=== PATIENT | female | born 1960 | race African-American/Black ===

== ENCOUNTER 2023-05-08 12:17 | Emergency (ER) | payer OTHER, SELFPAY ==
--- NOTE | 2023-05-08 12:31 | ED.GENADULT ---
HPI - General Adult General Chief complaint: Extremity Problem,Nontraumatic Stated complaint: Left Arm Pain Source: patient, RN notes reviewed and old records reviewed Mode of arrival: ambulatory Limitations: no limitations History of Present Illness HPI narrative: 62-year-old female presents to [facility] with complaints left elbow/arm redness, swelling, pain this started 2-3 days ago. Patient denies injury. MD complaint: Elbow pain Onset (ago): day(s) (2-3) Related Data Home Medications Medication Instructions Recorded Confirmed amlodipine 10 mg tablet mg 05/08/23 lisinopril 40 mg tablet mg 05/08/23 omeprazole 20 mg capsule,delayed mg 05/08/23 release simvastatin 20 mg tablet mg 05/08/23 tolterodine 2 mg tablet mg 05/08/23 Allergies Allergy/AdvReac Type Severity Reaction Status Date / Time No Known Allergies Allergy Verified 05/08/23 12:37 Review of Systems Constitutional: Constitutional: Reports no additional constitutional complaints, Denies body ache(s), Denies chills, Denies fatigue, Denies fever(s) and Denies headache(s) Eyes: Eyes: Reports no additional eye complaints and Denies blurry vision ENT: Reports system reviewed and no additional complaints, except as documented, Denies vertigo, Denies dizziness, Denies ear discharge, Denies otalgia, Denies facial pain, Denies headache(s), Denies nasal congestion, Denies nasal discharge, Denies sinus pain, Denies sinus pressure and Denies sore throat Cardiovascular: Cardiovascular: Reports no additional cardiovascular complaints, Denies chest pain, Denies chest pain at rest, Denies rapid heart rate and Denies dyspnea Respiratory: Respiratory: Reports no additional respiratory complaints, Denies chest congestion, Denies cough, Denies pain on inspiration, Denies pain with cough and Denies dyspnea Gastrointestinal: Gastrointestinal: Denies abdominal pain, Denies diarrhea, Denies nausea and Denies vomiting Musculoskeletal: Musculoskeletal: Reports arthralgias and Reports joint swelling Integumentary/Breasts: Skin/Breast: Denies rash Neurologic: Reports system reviewed and no additional complaints, except as documented, Denies vertigo, Denies dizziness and Denies headache(s) Endocrine: Endocrine: Denies fatigue PMFSH Comments At the time of my signature, I reviewed and agree with the nursing past medical, surgical, social, and family history. There is no relevant family history pertinent to the patient complaint. Exam Const: General: cooperative, healthy appearing, no acute distress and well nourished Nutritional Appearance: well nourished Orientation/consciousness: patient oriented x3 Limitations: no limitations HENMT: Head: normal to inspection and normocephalic Ears: external ears normal, TM's normal bilaterally, mastoids normal and Abnormal EAC present Face/Nose/Sinus: normal facial exam Face and sinus: normal facial exam Mouth: Yes Normal oral and palatal mucosa present, Yes oropharynx normal and Yes moist mucous membranes Throat: tonsils normal, uvula midline and no uvular edema Eyes: General: appearance normal, both eyes and all related structures Sclera: sclerae normal Pupils: Equal, round and reactive pupils present Resp: Effort & Inspection: normal respiratory effort, able to speak in complete sentences, no audible wheezes, no cough, no respiratory distress and no retractions Skin: General skin exam: normal color, no rashes or lesions noted and erythema Neuro: General: patient oriented x3 Cranial nerves: Yes Equal, round and reactive pupils present Extrem: Left upper extremity: normal capillary refill and elbow/forearm abnormal to inspection joint swelling and erythema, tenderness, swelling and warmth; no cyanosis Psych: Appearance: grossly normal Mental Status: mental status grossly normal Speech and movement: Normal speech and movement present Affect: normal affect Course Course Emergency Course: Patient is aware of diagnosi
[2023-05-08 12:34] VITALS: BP 132/79; PULSE 82; RESP 18; TEMP 36.2; O2SAT 100
== END 2023-05-08 12:50 | disposition home or self-care (01) ==
PROVIDERS: Emergency Provider Registered Nurse
DX: M70.22 Olecranon bursitis, left elbow (principal); E78.00 Pure hypercholesterolemia, unspecified; I10 Essential (primary) hypertension
CPT/HCPCS: 99213; G0463

== ENCOUNTER 2023-05-12 09:58 | Observation (INO) | payer OTHER, SELFPAY ==
--- NOTE | ~2023-05-12 | XR_ITS ---
EXAMINATION: XR elbow LT min 3V DATE: 05/12/2023 12:23 INDICATION: Left elbow pain and swelling. TECHNIQUE: 4 views of left elbow were obtained. COMPARISON: None. FINDINGS: Bone alignment is normal. No fracture. Joint spaces are normal there are enthesophytes at m edial and lateral humeral epicondyles. No elbow joint effusion. IMPRESSION: 1. No fracture. Reviewed, dictated and finalized at location A. UCT LISTER IMPRESSION: 1. No fracture.
--- NOTE | ~2023-05-12 | XR_ITS ---
EXAMINATION: XR chest 2V Exam Date/Time: 05/12/2023 14:40 ATHLETIC EQUIPMENT CUSTODIAN HISTORY: left elbow pain EXTREMITY REDNESS AND SWELLING Comparison: None. RESULT: Lines, tubes, and devices: None. Lungs and pleura: 2.1 cm left lower lobe nodule, lungs otherwise clear. Cardiomediastinal silhouette: Stable. Other: No acute osseous or upper abdominal finding. IMPRESSION: No acute cardiopulmonary process. 2.1 cm left lower lobe nodule, recommend comparison to outside stud ies if available. Otherwise, consider nonemergent but timely outpatient low-dose noncontrast CT of th e chest for further evaluation. Reviewed, dictated and finalized at location K. ETIC EQUIPMENT CUSTODIAN IMPRESSION: No acute cardiopulmonary process. 2.1 cm left lower lobe nodule, recommend comp arison to outside studies if available. Otherwise, consider nonemergent but nora terese outpatient low-dose noncontrast CT of the chest for further evaluation.
--- NOTE | ~2023-05-12 | MR_ITS ---
MRI of the elbow Clinical history muscle tear TECHNIQUE: Coronal proton-density and T1 fat-sat images, sagittal T2 fat-sat and proton-density image s, and axial T1-weighted and T2 fat-sat images were performed. Following intravenous administration o f 9 cc MultiHance gadolinium, T1-weighted fat-sat imaging was performed in the axial and sagittal caitie kaitlyn. FINDINGS: Ulnar collateral ligament grossly intact. Collateral ligament and the lateral ulnar collate ral ligament are grossly intact. Common flexor and common extensor tendon origins are unremarkable. Bone marrow signals are unremarkable. No articular abnormality of the elbow seen. No significant join t effusion. Biceps, brachialis, and triceps tendons are intact. Visualized muscle bellies are unremarkable. There is extensive subcutaneous soft tissue edema about the elbow, with a more focal irregular fluid colle ction overlying the olecranon, measuring approximately 2.3 x 2.5 x 0.8 cm. Probable small intramuscul ar lipoma in the medial aspect of the distal triceps muscle belly. There is a focal area of fat in th e brachialis muscle laterally, which corresponds with lesion seen on CT scan. IMPRESSION: Olecranon bursitis and additional nonspecific posterior subcutaneous soft tissue edema throughout the elbow. Findings most consistent with small intramuscular lipomas or other benign fatty lesions of the medial triceps and brachialis muscle laterally, which corresponds with CT findings. Reviewed, dictated and finalized at [facility]. GATION SYSTEM INSTALLER IMPRESSION: Olecranon bursitis and additional nonspecific posterior subcutaneous soft tissu e edema throughout the elbow. Findings most consistent with small intramuscular lipomas or other benign fatty lesions of the medial triceps and brachialis muscle laterally, which correspon ds with CT findings.
--- NOTE | ~2023-05-12 | CT_ITS ---
CT OF left elbow EXAMINATION: CT elbow LT wo con DATE: 05/12/2023 15:05 INDICATION: Nontraumatic elbow pain. TECHNIQUE: Computed tomography (CT) of the left elbow was performed without intravenous contrast. Aut omated exposure control and iterative reconstruction technique were employed. The dose-length product was 522.80 mGy-cm. COMPARISON: None FINDINGS: Limitations: None Bones: The included osseous structures are within normal limits. There are no erosive or destructive bony lesions. Soft Tissues:Posterior subcutaneous edema. 1.9 cm smoothly marginated fat density lesion in the media l aspect of the inferior triceps muscle. Heterogeneously dense 9 mm intramuscular lesion in the anter ior portion of the brachioradialis. Both lesions are noted approximately 7 cm proximal to the elbow j oint line over the distal upper arm. Fluid: No significant fluid within the joint capsule or surrounding bursal spaces. IMPRESSION: Normal osseous findings. Posterior subcutaneous swelling/contusion 9 mm intramuscular lesion in the anterior portion of the brachioradialis, may represent a small muscl e tear or other lesion. Medial triceps lipoma. Consider nonemergent MRI of the forearm without and with contrast for further evaluation of both lesi ons. Reviewed, dictated and finalized at location K. NOLOGIST IMPRESSION: Normal osseous findings. Posterior subcutaneous swelling/contusion 9 mm intramuscular lesion in the anterior portion of the brachioradialis, may r epresent a small muscle tear or other lesion. Medial triceps lipoma. Consider nonemergent MRI of the forearm without and with contrast for further e valuation of both lesions.
--- NOTE | 2023-05-12 10:04 | PC.NURSE ---
Pt states went to [facility] yesterday for same c/o waited 10 hours then left without being seen. Treated at on 05/08/23 for cellulitis of lower extremities started on antibiotic. States continuing to take medication. Seen by PMD this morning prior to to coming to ER. PMD states unable to do the testing pt request at office.
[2023-05-12 10:31] VITALS: BP 146/84; PULSE 81; RESP 20; TEMP 36.8; O2SAT 100
--- NOTE | 2023-05-12 12:06 | ED.GENADULT ---
HPI - General Adult General Chief complaint: Extremity Problem,Nontraumatic Stated complaint: leg swelling Time Seen by Provider: 05/12/23 13:56 History of Present Illness HPI narrative: Focused HPI: 1207 Elisa Allison is a 62 y/o female who has been dealing with intermittent swelling to both legs and left arm. She states it started 1 week ago. She went to an 4 days ago for her left arm/ elbow and she was told it was brusitis and started on an antibiotic. She went to her PCP today because she is having more swelling /redness to both legs and more pain swelling to left elbow - her PCP told her to come here to get checked out. Bilateral legs swollen/ red left elbow swollen/ red GENERAL: Well-appearing, well-nourished, and in no acute distress. HEAD: Normocephalic, atraumatic. CHEST: Clear to auscultation. ?No respiratory distress. HEART: Regular rate and rhythm.? NEURO: ?Alert and oriented x3. Patient screened in triage and initial orders placed.? ?Additional care and disposition to be based upon?diagnostic testing and treatment. Related Data Home Medications Medication Instructions Recorded Confirmed amlodipine 10 mg tablet 10 mg PO DAILY 05/08/23 05/12/23 lisinopril 40 mg tablet 40 mg PO DAILY 05/08/23 05/12/23 omeprazole 20 mg capsule,delayed 20 mg PO DAILY PRN heartburn 05/08/23 05/12/23 release simvastatin 20 mg tablet 20 mg PO DAILY 05/08/23 05/12/23 tolterodine 2 mg tablet 2 mg PO BID 05/08/23 05/12/23 Allergies Allergy/AdvReac Type Severity Reaction Status Date / Time No Known Allergies Allergy Verified 05/12/23 18:46 [facility] Past Medical History Medical History Bursitis of left elbow Cellulitis of left elbow Diverticulitis GERD (gastroesophageal reflux disease) Hyperlipidemia Hypertension Muscle tear Overactive bladder Surgical History Surgical History History of hysterectomy Family History Family History Mother Colon cancer Grandparent Breast cancer Social History Social History Smoking status: Former smoker Tobacco type: cigarettes Additional smoking assessment comments: Stop smoking years ago- unsure of exact year Alcohol intake: current Drinks per week: 1 Substance use: never Do You Feel Safe in your Home?: Yes Lack of Transportation: No Lack of Food: Never True Current Housing: I Have Housing Concerned About Future Housing: No Difficulty Paying Gas/Electric Bills: No Difficulty Paying for Meds: No Currently Unemployed: No Education: Don't Know Difficulty w/ Childcare or Family Care: No Spiritual care concerns: No Course Vital Signs Vital signs: Vital Signs Temperature 36.8 C 05/12/23 10:31 Pulse Rate 81 05/12/23 10:31 Respiratory Rate 20 05/12/23 10:31 Blood Pressure 146/84 H 05/12/23 10:31 Pulse Oximetry 100 05/12/23 10:31 Oxygen Delivery Room Air 05/12/23 10:31 Temperature 36.3 C L 05/15/23 14:00 Pulse Rate 78 05/15/23 14:00 Respiratory Rate 18 05/15/23 14:00 Blood Pressure 99/51 L 05/15/23 14:00 Pulse Oximetry 99 05/15/23 14:00 Oxygen Delivery Room Air 05/14/23 08:00 Medical Decision Making Vital Signs Vital Signs: Vital Signs Temperature 36.8 C 05/12/23 10:31 Pulse Rate 81 05/12/23 10:31 Respiratory Rate 20 05/12/23 10:31 Blood Pressure 146/84 H 05/12/23 10:31 Pulse Oximetry 100 05/12/23 10:31 Oxygen Delivery Room Air 05/12/23 10:31 Temperature 36.3 C L 05/15/23 14:00 Pulse Rate 78 05/15/23 14:00 Respiratory Rate 18 05/15/23 14:00 Blood Pressure 99/51 L 05/15/23 14:00 Pulse Oximetry 99 05/15/23 14:00 Oxygen Delivery Room Air 05/14/23 08:00 Lab Data 05/15/23 07:44 05/15/23 07:44 Labs:
[2023-05-12 13:18] LABS: Basophils Percent Auto 0.1 % (0.2-1.2); Eosinophils Absolute Auto 0.3 K/mm3 (0-0.3); Eosinophils Percent Auto 4.1 % (0-4.4); Hematocrit 43.6 % (37.0-47.0); Hemoglobin 13.3 g/dL (12.0-15.0); Immature Granulocyte Absolute 0.01 K/mm3 (0.00-0.031); Immature Granulocyte Percent A 0.1 % (0-0.5); Lymphocytes Absolute Auto 2.12 K/mm3 (0.9-3.2); Lymphocytes Percent Auto 31.2 % (18.3-44.2); Mean Corpuscular HGB Conc 30.5 g/dl (32-36); Mean Corpuscular Hemoglobin 26.5 pg (26-34); Mean Corpuscular Volume 86.9 fl (80-100); Mean Platelet Volume 10.3 fl (7.4-10.4); Monocytes Absolute Auto 0.3 K/mm3 (0.1-0.6); Monocytes Percent Auto 4.3 % (2.6-8.5); Neutrophils Absolute Auto 4.1 K/mm3 (1.3-6.7); Neutrophils Percent Auto 60.2 % (45.5-73.1); Platelet Count Result 264 k/mm3 (150-375); Red Blood Count 5.02 M/mm3 (4.2-5.4); Red Cell Distribution Width 15.2 % (11.5-14.5); White Blood Count 6.8 K/mm3 (4.5-10.0)
[2023-05-12 13:28] LABS: Anisocytosis 1+ (NORMAL); Platelet Estimate Adequate (Adequate); Schistocytes None Seen (NORMAL)
[2023-05-12 13:30] LABS: Lactic Acid Reflex 1.1 mmol/L (0.7-2.0)
[2023-05-12 13:46] LABS: NT Pro B Type Natriuretic Pept 118 pg/mL (19.9-100)
[2023-05-12 13:48] VITALS: BP 139/82; PULSE 86; RESP 18; O2SAT 100
[2023-05-12 13:50] LABS: Alanine Aminotransferase 49 U/L (6-35); Alkaline Phosphatase 87 U/L (38-126); Anion Gap 7 mmol/L (8-16); Aspartate Amino Transferase 54 U/L (14-36); Bilirubin,Total 0.4 mg/dL (0.2-1.3); Blood Urea Nitrogen 10 mg/dL (7-17); CRP 4.5 mg/dL (<1.0); Carbon Dioxide 27 mmol/L (22-30); Chloride 106 mmol/L (98-107); Estimated CRCL calculation 76 ml/min; Estimated Glomerular Filt Rate > 60; Glucose 83 mg/dL (65-110); Potassium 3.6 mmol/L (3.4-5.0); Sodium 140 mmol/L (137-145)
--- NOTE | 2023-05-12 13:57 | ED.EXTPRO ---
HPI - Extremity Problem General Chief complaint: Extremity Problem,Nontraumatic Stated complaint: leg swelling Time Seen by Provider: 05/12/23 13:56 Source: patient Mode of arrival: ambulatory Limitations: no limitations History of Present Illness HPI Narrative: 62 years old female came drove herself to the emergency room complaining of pain at the left elbow, and swelling at that area it started 1 week ago. Patient went to urgent care few days later and started on Keflex 500 q.8 hours and ibuprofen 1 day prior to that patient developed diffuse redness and itching of the lower extremity bilaterally. Patient denies history of allergy, fever, chills, nausea, vomiting or having similar symptom in the past. Patient went to [facility] Emergency Room and waited for long hours, then went to home, today was seen by her family physician who works at [facility] and was told to go to the ED right away. Patient decided contact [facility] instead of [facility] ED. patient denies any recent trauma, chest pain, shortness of breath, back pain. Related Data Home Medications Medication Instructions Recorded Confirmed amlodipine 10 mg tablet mg 05/08/23 lisinopril 40 mg tablet mg 05/08/23 omeprazole 20 mg capsule,delayed mg 05/08/23 release simvastatin 20 mg tablet mg 05/08/23 tolterodine 2 mg tablet mg 05/08/23 Allergies Allergy/AdvReac Type Severity Reaction Status Date / Time No Known Allergies Allergy Verified 05/12/23 10:00 Review of Systems Review of Systems: All systems reviewed & are unremarkable except as noted in HPI and below PMFSH Past Medical History Medical History Hypertension Surgical History Surgical History History of hysterectomy Social History Social History Smoking status: Former smoker Tobacco type: cigarettes Additional smoking assessment comments: Stop smoking years ago- unsure of exact year Alcohol intake: never Substance use: never Exam Narrative: General appearance: Well-developed, well-nourished Skin: Symmetrical diffuse erythema, warmth of the lower extremity bilaterally immediately distal to the groins bilaterally, circumferential Head: Normocephalic, nontraumatic Eyes: Clear conjunctiva ENT: Oropharynx normal, ears normal, nose normal Neck: Supple, nontender Chest and respiratory: Airway patent, no respiratory distress, no accessory muscle use Heart: Regular rate/rhythm Abdomen: Soft, nontender, no organomegaly, quiet bowel sounds Vascular: Normal peripheral pulses, normal capillary refill. Musculoskeletal: left elbow showed slight diffuse tenderness, warmth, no localized swelling slightly erythematous Neurologic: Alert and oriented ?3, [employer] is normal as tested, no gross motor deficit Course Consultations Consultation #1: krupa Admit to hospitalist Date: 05/12/23 Time: 16:18 Vital Signs Vital signs: Vital Signs Temperature 36.8 C 05/12/23 10:31 Pulse Rate 81 05/12/23 10:31 Respiratory Rate 20 05/12/23 10:31 Blood Pressure 146/84 H 05/12/23 10:31 Pulse Oximetry 100 05/12/23 10:31 Oxygen Delivery Room Air 05/12/23 10:31 Temperature 36.8 C 05/12/23 10:31 Pulse Rate 79 05/12/23 15:26 Respiratory Rate 15 05/12/23 15:26 Blood Pressure 135/77 05/12/23 15:26 Pulse Oximetry 100 05/12/23 15:26 Oxygen Delivery Room Air 05/12/23 10:31 MDM - Extremity (Nontraumatic) MDM Narrative Medical decision making narrative: patient pres
[2023-05-12 15:09] LABS: Prothrombin Time 13.7 Seconds (11.1-14.7)
[2023-05-12 15:10] LABS: Partial Thromboplastin Time 30.1 SECONDS (22.3-36.8)
[2023-05-12 15:15] LABS: Erythrocyte Sedimentation Rate 13 mm/hr (0-20)
[2023-05-12 15:26] VITALS: BP 135/77; PULSE 79; RESP 15; O2SAT 100
--- NOTE | 2023-05-12 15:35 | PM.IMHP ---
H&P: HPI History of Present Illness Date/Time: 05/12/23 15:35 Chief Complaint: Left elbow redness and edema, BLE redness and edema Narrative: 62 year old AA female is seen today at bedside for admission after presenting to ER with concerns of left elbow and BLE erythema and edema. She is admitted for cellulitis of left elbow. She state that about 1 week ago she noticed her elbow was swollen and red. She stated that after she noticed her elbow she began to feel warmth and swelling in her legs. She expressed that pain in left elbow is intermittent and describes it as stabbing. She denies any pain to BLE. She stated both area are always hot. She stated she attempted to visit [facility], however, due to prolonged wait time she left, and tried to see her PCP who told her she must go to ER. She chose to visit this hospital. She presents with a warm, 2+ nonpitting edema to left elbow, noted is a small potential puncture site wound, without drainage. Her BLE have warmth and 1+ edema in the thigh area, pedal pulses are palpable at 2+. In ER evaluation and Image studies, X-ray of left elbow show no fracture, CT of left elbow revealed posterior subcutaneous swelling/contusion, 9mm intramuscular lesion in the anterior portion of the brachioradialis, that may represnt a small muscle tear or other lesion, medial triceps lipoma. Orthopedics was consulted in ER and we appreciate recommendations for care. MRI ordered will be scheduled for tomorrow. Laboratory values show normal WBC and slightly elevated CRP at 4.5. Chest X-ray shows no acute cardiopulmonary process, 2.1cm LLL nodule of which it is recommend timely outpatient follow up. Patient will receive IV Vancomycin and PO Prednisone 60mg Daily. She was made aware of admission and agreeable to care. All questions were answered to patient satisfaction. Review of Systems Review of Systems: All systems reviewed & are unremarkable except as noted in HPI and below PMFSH Past Medical History Medical History Bursitis of left elbow Cellulitis of left elbow Diverticulitis GERD (gastroesophageal reflux disease) Hyperlipidemia Hypertension Muscle tear Overactive bladder Surgical History Surgical History History of hysterectomy Social History Social History Smoking status: Former smoker Tobacco type: cigarettes Additional smoking assessment comments: Stop smoking years ago- unsure of exact year Alcohol intake: never Substance use: never Meds Home Medications and Allergies Home Medications Medication Instructions Recorded Confirmed Type amlodipine 10 mg tablet mg 05/08/23 History cephalexin 500 mg capsule 500 mg PO Q8H 10 days #30 caps 05/08/23 Rx fluconazole 100 mg tablet 100 mg PO Q72H #2 tabs 05/08/23 Rx (Diflucan) ibuprofen 600 mg tablet 600 mg PO Q6H PRN pain 5 days #20 05/08/23 Rx tabs lisinopril 40 mg tablet mg 05/08/23 History omeprazole 20 mg capsule,delayed mg 05/08/23 History release simvastatin 20 mg tablet mg 05/08/23 History tolterodine 2 mg tablet mg 05/08/23 History Allergies Allergy/AdvReac Type Severity Reaction Status Date / Time No Known Allergies Allergy Verified 05/12/23 10:00 Vital Signs Vital Signs - 24 hr 05/12/23 10:31 05/12/23 13:48 05/12/23 15:26 Temperature 98.3 F Pulse Rate 81 86 79 Respiratory Rate 20 18 15 Blood Pressure 146/84 H 139/82 135/77 Pulse Oximetry 100 100 100 Oxygen Delivery Room Air Exam Narrative: General:?Well-developed, Well-nourished, Alert and oriented, no acute distress noted. HEENT:?Normocephalic, PERRL, EOMI, MMM Neck:??Supple, non-tender Respiratory:?Lungs are clear to auscultation bilaterally, non-labored respirations Cardiovascular:??Regular rate and rhythm with S1-S2. Gastrointestinal:??Abdomen is soft, non-distended, non
[2023-05-12 15:48] VITALS: PULSE 80; RESP 18; O2SAT 100
[2023-05-12] MEDS: VANCOMYCIN 1,250 MG/NS 250 ML 1,250 MG/250 ML BAG 166.67 MG IVPB (16:19)
[2023-05-12] MEDS: predniSONE 20 MG TABLET 60 MG PO (16:21)
[2023-05-12 17:55] VITALS: BMI 31.4
[2023-05-12] MEDS: traMADol HCL (*CRX) 50 MG TABLET PO (18:27)
--- NOTE | 2023-05-12 18:38 | ADMGEN ---
This patient, Elisa Allison, was admitted to [facility] Surg Room 323-01. Patient/family oriented to hospital policies and general routines including ID bracelet, bed and alarms, visiting hours, pain management, procedures, bathroom and other care routines, personal items, smoking policy, room service/diet, and visiting hours. Information on how to activate the Rapid Response Team has been discussed. Patient/Family are encouraged to report perceived risks to care and to ask questions if they do not understand what they are told or what they should do. Report from Dayna in ER.
[2023-05-12 20:12] VITALS: BP 137/75; PULSE 84; RESP 18; TEMP 36.4; O2SAT 98
[2023-05-12] MEDS: MORPHINE SULFATE (*CRX) 4 MG/ML INJ IV PUSH (20:39)
[2023-05-12] MEDS: HYDROcodone/acetaminophen (*CRX) 5-325 MG TABLET 1 TAB PO (20:40)
[2023-05-12] MEDS: TOLTERODINE TARTRATE 2 MG TABLET PO (22:54)
[2023-05-13] MEDS: HYDROcodone/acetaminophen (*CRX) 5-325 MG TABLET 1 TAB PO ×3 (02:20→19:53)
[2023-05-13 05:15] VITALS: BP 121/74; PULSE 77; RESP 16; TEMP 36.3; O2SAT 100
[2023-05-13 06:44] LABS: Hematocrit 38.7 % (37.0-47.0); Hemoglobin 12.3 g/dL (12.0-15.0); Mean Corpuscular HGB Conc 31.8 g/dl (32-36); Mean Corpuscular Hemoglobin 27.1 pg (26-34); Mean Corpuscular Volume 85.2 fl (80-100); Mean Platelet Volume 10.5 fl (7.4-10.4); Platelet Count Result 258 k/mm3 (150-375); Red Blood Count 4.54 M/mm3 (4.2-5.4); Red Cell Distribution Width 14.8 % (11.5-14.5); White Blood Count 8.5 K/mm3 (4.5-10.0)
[2023-05-13 06:57] LABS: Alanine Aminotransferase 78 U/L (6-35); Albumin Level 3.6 g/dL (3.5-5.1); Alkaline Phosphatase 72 U/L (38-126); Anion Gap 7 mmol/L (8-16); Aspartate Amino Transferase 72 U/L (14-36); Bilirubin,Total 0.3 mg/dL (0.2-1.3); Blood Urea Nitrogen 12 mg/dL (7-17); Calcium 8.6 mg/dL (8.4-10.2); Carbon Dioxide 26 mmol/L (22-30); Chloride 107 mmol/L (98-107); Estimated CRCL calculation 88 ml/min; Estimated Glomerular Filt Rate > 60; Glucose 111 mg/dL (65-110); Potassium 3.8 mmol/L (3.4-5.0); Sodium 140 mmol/L (137-145)
[2023-05-13] MEDS: lisinopriL 20 MG TABLET 40 MG PO (09:23)
[2023-05-13] MEDS: predniSONE 20 MG TABLET 60 MG PO (09:23)
[2023-05-13] MEDS: PANTOPRAZOLE SOD SESQUIHYDRATE 20 MG TAB PO (09:24)
[2023-05-13] MEDS: amLODIPine BESYLATE 5 MG TABLET 10 MG PO (09:24)
[2023-05-13] MEDS: SIMVASTATIN 20 MG TABLET PO (09:24)
--- NOTE | 2023-05-13 09:24 | PM.CNOR ---
Assessment and Plan Assessment and plan (1) Rash, skin: Code(s): R21 - Rash and other nonspecific skin eruption Status: Acute Assessment and Plan: Patient with significant erythema b/l LE from proximal thigh to ankle. Minimal swelling. No weeping. No open wounds. Erythema present prior to initiation of antibiotic by urgent care last week. No known causes. Patient is on steroids and antibiotics for vasculitis vs. cellulitis as ordered by medicine team. Increased AST/ALT, CRP. Will check PHIL and Anti-dsDNA as well. (2) Cellulitis of left elbow: Code(s): L03.114 - Cellulitis of left upper limb Status: Acute Assessment and Plan: History, exam, CT and radiographs reviewed with the patient. Erythema/swelling of the left elbow. Biceps tendon intact. No obvious ligament laxity. No pain with AROM/PROM. Significant pain over the lateral epicondyle with palpation. No olecranon bursitis noted. MRI with contrast pending. Will continue to follow. Agree with antibiotics in the interim. Plan pending further imaging. History of Present Illness HPI Consult date: 05/13/23 Chief complaint: L Pulmonary Nodule/L Elbow Nontraumatic Pain/Skin Narrative: 62 year old female admitted with new onset left elbow pain, inflammation and erythema as well as bilateral lower extremity erythema from thigh to ankle. She was seen in an urgent care last week and started on cephalexin for her elbow pain/inflammation. Her b/l leg erythema was present prior to initiation of the antibiotic. She went to see her PCP for follow up after no improvement and failure to be seen in the ED at [facility]. She was directed by her PCP for reevaluation in the ED which prompted her visit here to [facility] as she lives in the area. She works for [employer]. Radiographs of the elbow in the ED reveal enthesophytes at medial and lateral humeral epicondyles but no evidence of fracture, dislocation or acute abnormalities. CT of the elbow reveals posterior subcutaneous swelling/contusion, a 9 mm intramuscular lesion in the anterior portion of the brachioradialis, and a medial triceps lipoma. She was admitted for further evaluation and work up. Review of Systems Constitutional: Constitutional: Reports no additional constitutional complaints, Denies chills, Denies fatigue, Denies fever(s), Denies headache(s) and Denies weakness Eyes: Eyes: Denies change in vision ENT: Reports Normal hearing present and Denies headache(s) Cardiovascular: Cardiovascular: Denies chest pain and Denies dyspnea Respiratory: Respiratory: Denies cough, Denies dyspnea and Denies wheezing Gastrointestinal: Gastrointestinal: Denies constipation, Denies diarrhea, Denies nausea and Denies vomiting Genitourinary: Genitourinary: Denies hematuria, Denies dysuria and Denies urinary urgency Musculoskeletal: Musculoskeletal: Reports as per HPI, Denies numbness and Denies tingling Integumentary/Breasts: Skin/Breast: Reports as per HPI Neurologic: Reports as per HPI, Reports Normal hearing present, Denies headache(s), Denies numbness, Denies tingling and Denies weakness Psychiatric: Psychiatric: Reports no additional psychiatric complaints Endocrine: Endocrine: Reports no additional endocrine complaints and Denies fatigue Hematologic/Lymphatic: Hematologic/Lymphatic: Reports no additional hematologic/lymphatic complaints Allergic/Immunologic: Allergic/Immunologic: Reports no additional allergic/immunologic complaints and Denies wheezing PMFSH Past Medical History Medical History Bursitis of left elbow Cellulitis of left elbow Diverticulitis GERD (gastroesophageal reflux disease) Hyperlipidemia Hypertension Muscle tear Overactive bladder Surgical History Surgical History History of hysterectomy Family History Family History Mother Colon cancer
[2023-05-13] MEDS: FLUCONAZOLE 100 MG TABLET PO (09:26)
[2023-05-13] MEDS: VANCOMYCIN 1,250 MG/NS 250 ML 1,250 MG/250 ML BAG 166.67 MG IVPB (09:27)
[2023-05-13] MEDS: TOLTERODINE TARTRATE 2 MG TABLET PO ×2 (09:52→19:53)
[2023-05-13 11:04] VITALS: O2SAT 97
[2023-05-13 13:35] VITALS: BP 140/72; PULSE 86; RESP 16; TEMP 36.2; O2SAT 100
--- NOTE | 2023-05-13 14:26 | P.PNIM_ITS ---
Progress Note: A&P Assessment and Plan (1) Rash, skin: Code(s): R21 - Rash and other nonspecific skin eruption Status: Acute Assessment and Plan: * Bilateral erythema and 2+ edema, with warmth. Patient denies pain to area, however admits to intermittent itch * Continue Prednisone 60 mg PO daily for possible vasculitis. * Continue Vancomycin IV for possible cellulitis * Continue to monitor * 05/13/23: Bilateral LE erythema continues. Patient denies pain, admits to itch at times. Stated edema is less today but notes that it returns if her legs are dependent. * Due to increased AST/ALT, CRP also suggest PHIL and Anti-dsDNA labs * R/O vasculitis vs cellulitis vs auto-immune. (2) Cellulitis of left elbow: Code(s): L03.114 - Cellulitis of left upper limb Status: Acute Assessment and Plan: * Presents with erythema, edema and warms to LUE * Small puncture like wound * CT of left elbow revealed posterior subcutaneous swelling/contusion, 9mm intramuscular lesion in the anterior portion of the brachioradialis, that may represnt a small muscle tear or other lesion, medial triceps lipoma. * Orthopedics consulted in ER and we appreciate recommendations for care * IV abx- Vancomycin and PO prednisone 60mg daily * 05/13/23: Erythema decreased today. no pain with ROM. * Ortho consulted- assessed patient agreeable to MRI with contrast to r/o bursitis vs abscess * MRI result: olecranon bursitis and additional nonspecific posterior subcutaneous soft tissue edema throughout elbow.Finds are most consistent with small intramuscular lipomas or other benign fatty lesions on the medial triceps and brachialis muscle laterally * Continue IV abx, appreciated Ortho recommendation for further care. (3) Muscle tear: Code(s): T14.8XXA - Other injury of unspecified body region, initial encounter Status: Acute Assessment and Plan: * See #2 (4) Bursitis of left elbow: Code(s): M70.32 - Other bursitis of elbow, left elbow Status: Acute Assessment and Plan: * See #2 * Ortho consulted- assessed patient agreeable to MRI with contrast to r/o bursitis vs abscess * MRI result: olecranon bursitis and additional nonspecific posterior subcutaneous soft tissue edema throughout elbow.Finds are most consistent with small intramuscular lipomas or other benign fatty lesions on the medial triceps and brachialis muscle laterally * Continue IV abx, appreciated Ortho recommendation for further care. (5) Hyperlipidemia: Code(s): E78.5 - Hyperlipidemia, unspecified Status: Acute Assessment and Plan: * Patient admits to hx of elevated cholesterol levels * Continue home simvastatin (6) GERD (gastroesophageal reflux disease): Code(s): K21.9 - Gastro-esophageal reflux disease without esophagitis Status: Acute Assessment and Plan: * Patient admits to hx of GERD and diverticulitis. Stated depending on food consumed she experiences symptoms * Continue home omeprazole * 05/13/23: Patient denies symptoms at this time. Continue current management (7) Hypertension: Code(s): I10 - Essential (primary) hypertension Status: Acute Assessment and Plan: * BPs WNL- 135/77 at this time * Potentially elevated due to pain episodes. * Continue patients home amlodipine and lisinopril * Continue to monitor * 05/13/23: BP this am 121/74. Continue current management (8) Elbow pain, left: Code(s): M25.522 - Pain in left elbow Status: Acute Assessment and Plan: * Patient admits to intermittent pain to left
--- NOTE | 2023-05-13 14:26 | PM.IMPN ---
Progress Note: A&P Assessment and Plan (1) Rash, skin: Code(s): R21 - Rash and other nonspecific skin eruption Status: Acute Assessment and Plan: Bilateral erythema and 2+ edema, with warmth. Patient denies pain to area, however admits to intermittent itch Continue Prednisone 60 mg PO daily for possible vasculitis. Continue Vancomycin IV for possible cellulitis Continue to monitor 05/13/23: Bilateral LE erythema continues. Patient denies pain, admits to itch at times. Stated edema is less today but notes that it returns if her legs are dependent. Due to increased AST/ALT, CRP also suggest PHIL and Anti-dsDNA labs R/O vasculitis vs cellulitis vs auto-immune. (2) Cellulitis of left elbow: Code(s): L03.114 - Cellulitis of left upper limb Status: Acute Assessment and Plan: Presents with erythema, edema and warms to LUE Small puncture like wound CT of left elbow revealed posterior subcutaneous swelling/contusion, 9mm intramuscular lesion in the anterior portion of the brachioradialis, that may represnt a small muscle tear or other lesion, medial triceps lipoma. Orthopedics consulted in ER and we appreciate recommendations for care IV abx- Vancomycin and PO prednisone 60mg daily 05/13/23: Erythema decreased today. no pain with ROM. Ortho consulted- assessed patient agreeable to MRI with contrast to r/o bursitis vs abscess MRI result: olecranon bursitis and additional nonspecific posterior subcutaneous soft tissue edema throughout elbow.Finds are most consistent with small intramuscular lipomas or other benign fatty lesions on the medial triceps and brachialis muscle laterally Continue IV abx, appreciated Ortho recommendation for further care. (3) Muscle tear: Code(s): T14.8XXA - Other injury of unspecified body region, initial encounter Status: Acute Assessment and Plan: See #2 (4) Bursitis of left elbow: Code(s): M70.32 - Other bursitis of elbow, left elbow Status: Acute Assessment and Plan: See #2 Ortho consulted- assessed patient agreeable to MRI with contrast to r/o bursitis vs abscess MRI result: olecranon bursitis and additional nonspecific posterior subcutaneous soft tissue edema throughout elbow.Finds are most consistent with small intramuscular lipomas or other benign fatty lesions on the medial triceps and brachialis muscle laterally Continue IV abx, appreciated Ortho recommendation for further care. (5) Hyperlipidemia: Code(s): E78.5 - Hyperlipidemia, unspecified Status: Acute Assessment and Plan: Patient admits to hx of elevated cholesterol levels Continue home simvastatin (6) GERD (gastroesophageal reflux disease): Code(s): K21.9 - Gastro-esophageal reflux disease without esophagitis Status: Acute Assessment and Plan: Patient admits to hx of GERD and diverticulitis. Stated depending on food consumed she experiences symptoms Continue home omeprazole 05/13/23: Patient denies symptoms at this time. Continue current management (7) Hypertension: Code(s): I10 - Essential (primary) hypertension Status: Acute Assessment and Plan: BPs WNL- 135/77 at this time Potentially elevated due to pain episodes. Continue patients home amlodipine and lisinopril Continue to monitor 05/13/23: BP this am 121/74. Continue current management (8) Elbow pain, left: Code(s): M25.522 - Pain in left elbow Status: Acute Assessment and Plan: Patient admits to intermittent pain to left elbow Order Tylenol 650mg q6hr PRN pain Order Tramadol 50 q6hrn PRN severe pain 05/13/23: Patient required once time dose of IV pain medication over night, stated pain is controled at this time Continue current options. Plan Inform patient to F/U Chest X-Ray results: 2.1 cm left lower lobe nodule, recommend comparison to outside studies if available. Otherwise, consider nonemergent bu
[2023-05-13 20:00] VITALS: PULSE 86; RESP 16; O2SAT 100
[2023-05-13] MEDS: VANCOMYCIN 1,250 MG/NS 250 ML 1,250 MG/250 ML BAG 166 MG IVPB (20:55)
[2023-05-13 22:00] VITALS: BP 124/69; PULSE 68; RESP 20; TEMP 36; O2SAT 98
[2023-05-14 06:00] VITALS: BP 134/74; PULSE 79; RESP 20; TEMP 36.6; O2SAT 100
[2023-05-14 08:01] LABS: Hematocrit 38.7 % (37.0-47.0); Mean Corpuscular Hemoglobin 26.8 pg (26-34); Mean Corpuscular Volume 86.4 fl (80-100); Mean Platelet Volume 10.1 fl (7.4-10.4); Platelet Count Result 279 k/mm3 (150-375); Red Blood Count 4.48 M/mm3 (4.2-5.4); White Blood Count 14.3 K/mm3 (4.5-10.0)
[2023-05-14] MEDS: amLODIPine BESYLATE 5 MG TABLET 10 MG PO (08:08)
[2023-05-14] MEDS: TOLTERODINE TARTRATE 2 MG TABLET PO ×2 (08:08→20:09)
[2023-05-14] MEDS: predniSONE 20 MG TABLET 60 MG PO (08:08)
[2023-05-14] MEDS: lisinopriL 20 MG TABLET 40 MG PO (08:08)
[2023-05-14] MEDS: PANTOPRAZOLE SOD SESQUIHYDRATE 20 MG TAB PO (08:08)
[2023-05-14] MEDS: SIMVASTATIN 20 MG TABLET PO (08:08)
[2023-05-14 08:16] LABS: Alanine Aminotransferase 125 U/L (6-35); Albumin Level 3.9 g/dL (3.5-5.1); Alkaline Phosphatase 72 U/L (38-126); Anion Gap 8 mmol/L (8-16); Aspartate Amino Transferase 101 U/L (14-36); Bilirubin,Total 0.3 mg/dL (0.2-1.3); Blood Urea Nitrogen 15 mg/dL (7-17); Carbon Dioxide 27 mmol/L (22-30); Chloride 106 mmol/L (98-107); Estimated CRCL calculation 77 ml/min; Estimated Glomerular Filt Rate > 60; Glucose 101 mg/dL (65-110); Potassium 3.6 mmol/L (3.4-5.0); Sodium 141 mmol/L (137-145)
[2023-05-14] MEDS: VANCOMYCIN 1,250 MG/NS 250 ML 1,250 MG/250 ML BAG 166 MG IVPB ×2 (09:26→20:12)
--- NOTE | 2023-05-14 11:50 | P.PNIM_ITS ---
Progress Note: A&P Assessment and Plan (1) Rash, skin: Code(s): R21 - Rash and other nonspecific skin eruption Status: Acute Assessment and Plan: * Bilateral erythema and 2+ edema, with warmth. Patient denies pain to area, however admits to intermittent itch * Continue Prednisone 60 mg PO daily for possible vasculitis. * Continue Vancomycin IV for possible cellulitis * Continue to monitor * PHIL and Anti-dsDNA labs pending * R/O vasculitis vs cellulitis vs auto-immune. (2) Cellulitis of left elbow: Code(s): L03.114 - Cellulitis of left upper limb Status: Acute Assessment and Plan: * Presents with erythema, edema and warms to LUE * Small puncture like wound * CT of left elbow revealed posterior subcutaneous swelling/contusion, 9mm intramuscular lesion in the anterior portion of the brachioradialis, that may represent a small muscle tear or other lesion, medial triceps lipoma. * Orthopedics consulted appreciate plan recommendation * -continue iV abx- Vancomycin and PO prednisone 60mg daily * MRI result: olecranon bursitis and additional nonspecific posterior subcutaneous soft tissue edema throughout elbow.Finds are most consistent with small intramuscular lipomas or other benign fatty lesions on the medial triceps and brachialis muscle laterally * Continue IV abx, appreciated Ortho recommendation for further care. (3) Muscle tear: Code(s): T14.8XXA - Other injury of unspecified body region, initial encounter Status: Acute Assessment and Plan: * See #2 (4) Bursitis of left elbow: Code(s): M70.32 - Other bursitis of elbow, left elbow Status: Acute Assessment and Plan: * See #2 (5) Hyperlipidemia: Code(s): E78.5 - Hyperlipidemia, unspecified Status: Acute Assessment and Plan: * Patient admits to hx of elevated cholesterol levels * Continue home simvastatin (6) GERD (gastroesophageal reflux disease): Code(s): K21.9 - Gastro-esophageal reflux disease without esophagitis Status: Acute Assessment and Plan: * Patient hx of GERD and diverticulitis. Stated depending on food consumed she experiences symptoms * Continue home omeprazole * 05/14/23: Continue current management (7) Hypertension: Code(s): I10 - Essential (primary) hypertension Status: Acute Assessment and Plan: BPs WNL-BP this a.m. 140/62 * Continue patients home amlodipine and lisinopril * Continue to monitor (8) Elbow pain, left: Code(s): M25.522 - Pain in left elbow Status: Acute Assessment and Plan: * Order Tylenol 650mg q6hr PRN pain * Order Tramadol 50 q6hrn PRN severe pain * Continue current options. Plan Inform patient to F/U Chest X-Ray results: 2.1 cm left lower lobe nodule, recommend comparison to outside studies if available. Otherwise, consider nonemergent but timely outpatient low-dose noncontrast CT of the chest for further evaluation. Subjective Date/time seen: 05/14/23 11:50 Interval history: 62 year old AA female presented to the ER with Left elbow pain and swelling as well as BLE redness, edema and warmth. She denied any known trauma to these area , reports being seen at urgent care and given abx, however, both areas were with symptoms before taking any abx. Image studies in ER, X-ray of left elbow show no fracture, CT of left elbow revealed posterior subcutaneous swelling/contusion, 9mm intramuscular lesion in the anterior portion of the brachioradialis, that may represent a small muscle tear or other lesion,
--- NOTE | 2023-05-14 11:50 | PM.IMPN ---
Progress Note: A&P Assessment and Plan (1) Rash, skin: Code(s): R21 - Rash and other nonspecific skin eruption Status: Acute Assessment and Plan: Bilateral erythema and 2+ edema, with warmth. Patient denies pain to area, however admits to intermittent itch Continue Prednisone 60 mg PO daily for possible vasculitis. Continue Vancomycin IV for possible cellulitis Continue to monitor PHIL and Anti-dsDNA labs pending R/O vasculitis vs cellulitis vs auto-immune. (2) Cellulitis of left elbow: Code(s): L03.114 - Cellulitis of left upper limb Status: Acute Assessment and Plan: Presents with erythema, edema and warms to LUE Small puncture like wound CT of left elbow revealed posterior subcutaneous swelling/contusion, 9mm intramuscular lesion in the anterior portion of the brachioradialis, that may represent a small muscle tear or other lesion, medial triceps lipoma. Orthopedics consulted appreciate plan recommendation -continue iV abx- Vancomycin and PO prednisone 60mg daily MRI result: olecranon bursitis and additional nonspecific posterior subcutaneous soft tissue edema throughout elbow.Finds are most consistent with small intramuscular lipomas or other benign fatty lesions on the medial triceps and brachialis muscle laterally Continue IV abx, appreciated Ortho recommendation for further care. (3) Muscle tear: Code(s): T14.8XXA - Other injury of unspecified body region, initial encounter Status: Acute Assessment and Plan: See #2 (4) Bursitis of left elbow: Code(s): M70.32 - Other bursitis of elbow, left elbow Status: Acute Assessment and Plan: See #2 (5) Hyperlipidemia: Code(s): E78.5 - Hyperlipidemia, unspecified Status: Acute Assessment and Plan: Patient admits to hx of elevated cholesterol levels Continue home simvastatin (6) GERD (gastroesophageal reflux disease): Code(s): K21.9 - Gastro-esophageal reflux disease without esophagitis Status: Acute Assessment and Plan: Patient hx of GERD and diverticulitis. Stated depending on food consumed she experiences symptoms Continue home omeprazole 05/14/23: Continue current management (7) Hypertension: Code(s): I10 - Essential (primary) hypertension Status: Acute Assessment and Plan: BPs WNL-BP this a.m. 140/62 Continue patients home amlodipine and lisinopril Continue to monitor (8) Elbow pain, left: Code(s): M25.522 - Pain in left elbow Status: Acute Assessment and Plan: Order Tylenol 650mg q6hr PRN pain Order Tramadol 50 q6hrn PRN severe pain Continue current options. Plan Inform patient to F/U Chest X-Ray results: 2.1 cm left lower lobe nodule, recommend comparison to outside studies if available. Otherwise, consider nonemergent but timely outpatient low-dose noncontrast CT of the chest for further evaluation. Subjective Date/time seen: 05/14/23 11:50 Interval history: 62 year old AA female presented to the ER with Left elbow pain and swelling as well as BLE redness, edema and warmth. She denied any known trauma to these area, reports being seen at urgent care and given abx, however, both areas were with symptoms before taking any abx. Image studies in ER, X-ray of left elbow show no fracture, CT of left elbow revealed posterior subcutaneous swelling/contusion, 9mm intramuscular lesion in the anterior portion of the brachioradialis, that may represent a small muscle tear or other lesion, medial triceps lipoma. She was admitted to the hospital for IV abx and orthopedic consultation. Ortho assessed patient and was agreeable to MRI with contrast to r/o abscess vs bursitis. increased AST/ALT, CRP also suggest PHIL and Anti-dsDNA labs. Patient reported an episode of pain overnight that required IV pain medication, however at this time she reports pain has well controlled. Left elbow erythema has dec
[2023-05-14] MEDS: DOCUSATE SODIUM 100 MG CAPSULE PO ×2 (12:03→20:09)
[2023-05-14] MEDS: HYDROcodone/acetaminophen (*CRX) 10-325 MG TABLET 1 TAB PO (13:02)
[2023-05-14 14:00] VITALS: BP 140/62; PULSE 83; RESP 20; TEMP 36.3; O2SAT 99
--- NOTE | 2023-05-14 18:55 | PM.PNORT ---
Progress Note: A&P Assessment and Plan (1) Elbow pain, left: Code(s): M25.522 - Pain in left elbow Status: Acute Assessment and Plan: S/P LEFT ELBOW PAIN OF UNKNOWN ORIGIN NOW IMPROVED. THERE IS NO EVIDENCE OF JOINT INFECTION OR CURRENT SOFT TISSUE INFECTION OF THE ELBOW. THERE IS NO SIGN OF BURSITIS OR ABSCESS. SHE HAS NO CELLULITIS TODAY. MRI SHOWS INTRAMUSCULAR LIPOMA OF TRICEPS AND BRACHIORADIALIS. THIS IS MOST LIKELY NOT THE CAUSE OF HER CURRENT PROBLEM. SHE IS BEING WORKED UP FOR POSSIBLE INFLAMMATORY ARTHROPATHY. WILL OBSERVE FOR NOW. SHE WILL F/U NEEDED. WE WILL SIGN OFF HER CARE FOR THE MOMENT. PLEASE LET US KNOW IF WE CAN BE OF FURTHER ASSISTANCE Subjective Subjective Date/Time Seen: 05/14/23 18:55 Interval history: S/P LEFT ELBOW PAIN. SHE HAS NO PAIN TODAY WITH ANY ELBOW MOVEMENT. SHE DENIES ANY FEVER OR CHILLS. SHE DENIES ANY REDENESS OR SIGNIFICANT SWELLING. Exam Extrem: Other: LEFT ELBOW. NO PAIN WITH AROM OR PROM, THERE IS NO CELLULITIS, THERE IS NO BURSITIS. SHE HAS MILD TENDERNESS OVER THE LATERAL EPICONDYLE. SHE HAS NO EFFUSION SHE HAS FULL MOTION AND NO PAIN, NV INTACT Objective Data Vital Signs Vital Signs: Vital Signs - 24 hr 05/13/23 20:00 05/13/23 22:00 05/14/23 06:00 Temperature 36.0 C L 36.6 C Pulse Rate 86 68 79 Respiratory Rate 16 20 20 Blood Pressure 124/69 134/74 Pulse Oximetry 100 98 100 Oxygen Delivery Room Air 05/14/23 08:00 05/14/23 14:00 Temperature 36.3 C L Pulse Rate 83 Respiratory Rate 20 Blood Pressure 140/62 Pulse Oximetry 99 Oxygen Delivery Room Air Intake/Output Intake/Output: Intake & Output 05/11/23 05/12/23 05/13/23 05/14/23 23:59 23:59 23:59 23:59 Intake Total 1520 968 Output Total 0 Balance 1520 968 Meds/Results Medications: Active Medications Generic Name Dose Route Start Last Admin Trade Name Freq PRN Reason Stop Dose Admin Acetaminophen 650 mg 05/12/23 17:11 Acetaminophen 325 Mg Tablet PO Q6H PRN Pain 1-6 or Fever Hydrocodone Bitart/Acetaminophen 1 tab 05/12/23 20:28 05/13/23 19:53 Hydrocodone/Acetaminophen (*Crx) 5-325 Mg Tablet PO 1 tab Q6H PRN Administration Pain Rated 4-6 Hydrocodone Bitart/Acetaminophen 1 tab 05/14/23 12:48 05/14/23 13:02 Hydrocodone/Acetaminophen (*Crx) 10-325 Mg Tablet PO 1 tab Q4H PRN Administration Pain Rated 7-10 Amlodipine Besylate 10 mg 05/13/23 09:00 05/14/23 08:08 Amlodipine Besylate 5 Mg Tablet PO 10 mg DAILY EMILY Administration Docusate Sodium 100 mg 05/14/23 11:10 05/14/23 12:03 Docusate Sodium 100 Mg Capsule PO 100 mg Q12HR EMILY Administration Fluconazole 100 mg 05/13/23 09:00 05/13/23 09:26 Fluconazole 100 Mg Tablet PO 100 mg Q72H EMILY Administration Vancomycin HCl 1,250 mg in 250 mls @ 166.667 mls/hr 05/13/23 09:00 05/14/23 12:03 Vancomycin 1,250 Mg/Ns 250 Ml IVPB Infused Q12HR EMILY Infusion Lisinopril 40 mg 05/13/23 09:00 05/14/23 08:08 Lisinopril 20 Mg Tablet PO 40 mg DAILY EMILY Administration Pantoprazole Sodium 20 mg 05/13/23 09:00 05/14/23 08:08 Pantoprazole Sod Sesquihydrate 20 Mg Tab PO 20 mg QAM EMILY Administration Prednisone 60 mg 05/13/23 08:00 05/14/23 08:08 Prednisone 20 Mg Tablet PO 60 mg DAILY@0800 EMILY Administration Simvastatin 20 mg 05/13/23 09:00 05/14/23 08:08 Simvastatin 20 Mg Tablet PO 20 mg DAILY EMILY Administration Tolterodine Tartrate 2 mg 05/12/23 21:00 05/14/23 08:08 Tolterodine Tartrate 2 Mg Tablet PO 2 mg Q12HR EMILY Administration Radiology Results: ITS Impressions Elbow X-Ray 05/12/23 12:37 IMPRESSION: 1. No fracture. Chest X-Ray 05/12/23 15:04 IMPRESSION: No acute cardiopulmonary process. 2.1 cm left lower lobe nodule, recommend comparison to outside studies if available. Otherwise, consider nonemergent but timely outpatient low-dose noncontrast
[2023-05-14 22:00] VITALS: BP 116/70; PULSE 64; RESP 14; TEMP 36.1; O2SAT 99
[2023-05-15 05:04] VITALS: BP 120/64; PULSE 68; RESP 16; TEMP 36.4; O2SAT 100
[2023-05-15 07:57] LABS: Basophils Absolute Auto 0.1 K/mm3 (0.0-0.1); Basophils Percent Auto 0.3 % (0.2-1.2); Eosinophils Percent Auto 0.3 % (0-4.4); Hematocrit 40.5 % (37.0-47.0); Hemoglobin 12.5 g/dL (12.0-15.0); Immature Granulocyte Absolute 0.19 K/mm3 (0.00-0.031); Immature Granulocyte Percent A 1.2 % (0-0.5); Lymphocytes Absolute Auto 4.84 K/mm3 (0.9-3.2); Lymphocytes Percent Auto 31.1 % (18.3-44.2); Mean Corpuscular HGB Conc 30.9 g/dl (32-36); Mean Corpuscular Hemoglobin 26.5 pg (26-34); Monocytes Absolute Auto 0.8 K/mm3 (0.1-0.6); Monocytes Percent Auto 5.1 % (2.6-8.5); Neutrophils Absolute Auto 9.6 K/mm3 (1.3-6.7); Platelet Count Result 312 k/mm3 (150-375); Red Blood Count 4.71 M/mm3 (4.2-5.4); Red Cell Distribution Width 14.8 % (11.5-14.5); White Blood Count 15.6 K/mm3 (4.5-10.0)
[2023-05-15 08:16] LABS: Alanine Aminotransferase 106 U/L (6-35); Albumin Level 3.8 g/dL (3.5-5.1); Alkaline Phosphatase 74 U/L (38-126); Anion Gap 6 mmol/L (8-16); Aspartate Amino Transferase 46 U/L (14-36); Bilirubin,Total 0.3 mg/dL (0.2-1.3); Blood Urea Nitrogen 18 mg/dL (7-17); Carbon Dioxide 28 mmol/L (22-30); Chloride 105 mmol/L (98-107); Estimated CRCL calculation 77 ml/min; Estimated Glomerular Filt Rate > 60; Glucose 83 mg/dL (65-110); Potassium 3.6 mmol/L (3.4-5.0); Sodium 139 mmol/L (137-145)
[2023-05-15] MEDS: TOLTERODINE TARTRATE 2 MG TABLET PO (08:31)
[2023-05-15] MEDS: SIMVASTATIN 20 MG TABLET PO (08:31)
[2023-05-15] MEDS: amLODIPine BESYLATE 5 MG TABLET 10 MG PO (08:32)
[2023-05-15] MEDS: VANCOMYCIN 1,250 MG/NS 250 ML 1,250 MG/250 ML BAG 166 MG IVPB (08:32)
[2023-05-15] MEDS: PANTOPRAZOLE SOD SESQUIHYDRATE 20 MG TAB PO (08:32)
[2023-05-15] MEDS: DOCUSATE SODIUM 100 MG CAPSULE PO (08:32)
[2023-05-15] MEDS: lisinopriL 20 MG TABLET 40 MG PO (08:32)
[2023-05-15] MEDS: predniSONE 20 MG TABLET 60 MG PO (08:32)
--- NOTE | 2023-05-15 09:31 | PM.PNORT ---
Progress Note: A&P Assessment and Plan (1) Cellulitis of left elbow: Code(s): L03.114 - Cellulitis of left upper limb Status: Acute Assessment and Plan: MRI reviewed with patient by Dr. Beltran yesterday. No recommendations for surgical intervention at this time. Significant improvement in erythema. Still no pain with AROM/PROM of the left elbow. Defer antibiotic choice at d/c to medicine team. May follow up with orthopedics as needed. No further recommendations at this time. (2) Rash, skin: Code(s): R21 - Rash and other nonspecific skin eruption Status: Acute Assessment and Plan: PHIL pending Plan Reviewed history, exam, radiographs and current labs with attending MD and covering surgeon, Dr. Beltran, who agrees with current plan as indicated above. No further recommendations from Dr. Beltran at this time. Subjective Subjective Date/Time Seen: 05/15/23 09:31 Interval history: Patient with improvement in left elbow pain today. Significant improvement in redness/warmth/swelling of the left elbow. Still with erythema b/l LE. Otherwise, no new concerns. Review of Systems Review of Systems: All systems reviewed & are unremarkable except as noted in HPI and below Exam Const: General: comfortable and no acute distress HENMT: Mouth: Yes moist mucous membranes Eyes: General: appearance normal, both eyes and all related structures Neck: Neck: supple and no JVD Resp: Effort & Inspection: normal respiratory effort Cardio: Rate: regular rate Rhythm: regular rhythm GI: Inspection: non-distended GI Palp: Yes Soft to palpation and No Tenderness to palpation present (GI) Skin: General skin exam: erythema (b/l LE, left elbow ), no induration, no jaundice, no petechiae, no purpura, No lesion, No abrasion, No laceration and No wounds noted Rashes: rashes noted (b/l LE erythema from thigh to ankle) Neuro: General: gait normal Cognition (Neuro): normal cognition Speech: normal speech Extrem: Left upper extremity: elbow/forearm tenderness (IMPROVED ) of the olecranon, of the lateral epicondyle and of the proximal forearm; not of the antecubital fossa and not of the medial epicondyle, swelling (MINIMAL ) of the olecranon and of the lateral epicondyle, normal ROM and distal pulses intact; no lacerations, no ecchymosis, no crepitus and no deformity Psych: Mental Status: mental status grossly normal Affect: normal affect Objective Data Vital Signs Vital Signs: Vital Signs - 24 hr 05/14/23 14:00 05/14/23 22:00 05/15/23 05:04 Temperature 36.3 C L 36.1 C L 36.4 C Pulse Rate 83 64 68 Respiratory Rate 20 14 16 Blood Pressure 140/62 116/70 120/64 Pulse Oximetry 99 99 100 Intake/Output Intake/Output: Intake & Output 05/12/23 05/13/23 05/14/23 05/15/23 23:59 23:59 23:59 23:59 Intake Total 1520 1458 150 Output Total 0 Balance 1520 1458 150 Meds/Results Medications: Active Medications Generic Name Dose Route Start Last Admin Trade Name Freq PRN Reason Stop Dose Admin Acetaminophen 650 mg 05/12/23 17:11 Acetaminophen 325 Mg Tablet PO Q6H PRN Pain 1-6 or Fever Hydrocodone Bitart/Acetaminophen 1 tab 05/12/23 20:28 05/13/23 19:53 Hydrocodone/Acetaminophen (*Crx) 5-325 Mg Tablet PO 1 tab Q6H PRN Administration Pain Rated 4-6 Hydrocodone Bitart/Acetaminophen 1 tab 05/14/23 12:48 05/14/23 13:02 Hydrocodone/Acetaminophen (*Crx) 10-325 Mg Tablet PO 1 tab Q4H PRN Administration Pain Rated 7-10 Amlodipine Besylate 10 mg 05/13/23 09:00 05/15/23 08:32 Amlodipine Besylate 5 Mg Tablet PO 10 mg DAILY EMILY Administration Docusate Sodium 100 mg 05/14/23 11:10 05/15/23 08:32 Docusate Sodium 100 Mg Capsule PO 100 mg Q12HR EMILY Administration Fluconazole 100 mg 05/13/23 09:00 05/13/23 09:26 Fluconazole 100 Mg Tablet PO 100 mg Q72H EMILY Administration Vancomycin HCl 1,250 mg in 250 mls @ 166.667 mls/hr
[2023-05-15] MEDS: HYDROcodone/acetaminophen (*CRX) 10-325 MG TABLET 1 TAB PO (10:32)
[2023-05-15 14:00] VITALS: BP 99/51; PULSE 78; RESP 18; TEMP 36.3; O2SAT 99
--- NOTE | 2023-05-15 16:27 | PM.DS ---
DS: Admitting Diagnosis Discharge Date 05/15/2023 Admitting Diagnosis Cellulitis of left elbow DS: Discharge Diagnosis Discharge Diagnosis (1) Rash, skin: Code(s): R21 - Rash and other nonspecific skin eruption Status: Acute (2) Cellulitis of left elbow: Code(s): L03.114 - Cellulitis of left upper limb Status: Acute Assessment and Plan: MRI result: olecranon bursitis and additional nonspecific posterior subcutaneous soft tissue edema throughout elbow.Finds are most consistent with small intramuscular lipomas or other benign fatty lesions on the medial triceps and brachialis muscle laterally (3) Bursitis of left elbow: Code(s): M70.32 - Other bursitis of elbow, left elbow Status: Acute Assessment and Plan: -use tramadol 50 mg every 6 hours p.r.n. for pain (4) Hypertension: Code(s): I10 - Essential (primary) hypertension Status: Acute Assessment and Plan: -continue home medication amlodipine and lisinopril (5) Hyperlipidemia: Code(s): E78.5 - Hyperlipidemia, unspecified Status: Acute Assessment and Plan: -continue home simvastatin (6) GERD (gastroesophageal reflux disease): Code(s): K21.9 - Gastro-esophageal reflux disease without esophagitis Status: Acute Assessment and Plan: -continue home medication omeprazole DS: Summary Hospital Course Reason for hospitalization: Left elbow redness and edema, BLE redness and edema Narrative: 62 year old AA female is seen today at bedside for admission after presenting to ER with concerns of left elbow and BLE erythema and edema. She is admitted for cellulitis of left elbow Hospital Course: ?She state that about 1 week ago she noticed her elbow was swollen and red. She stated that after she noticed her elbow she began to feel warmth and swelling in her legs. She expressed that pain in left elbow is intermittent and describes it as stabbing. She denies any pain to BLE. She stated both area are always hot. She stated she attempted to visit [facility], however, due to prolonged wait time she left, and tried to see her PCP who told her she must go to ER. She chose to visit this hospital. She presents with a warm, 2+ nonpitting edema to left elbow, noted is a small potential puncture site wound, without drainage. Her BLE have warmth and 1+ edema in the thigh area, pedal pulses are palpable at 2+.? In ER evaluation and Image studies, X-ray of left elbow show no fracture, CT of left elbow revealed posterior subcutaneous swelling/contusion, 9mm intramuscular lesion in the anterior portion of the brachioradialis, that may represnt a small muscle tear or other lesion, medial triceps lipoma. Orthopedics was consulted in ER and we appreciate recommendations for care. MRI ordered will be scheduled for tomorrow. Laboratory values show normal WBC and slightly elevated CRP at 4.5. Chest X-ray shows no acute cardiopulmonary process, 2.1cm LLL nodule of which it is recommend timely outpatient follow up. Patient will receive IV Vancomycin and PO Prednisone 60mg Daily. She was made aware of admission and agreeable to care. All questions were answered to patient satisfaction. ? Interval history: 05/14/2023:??Patient seen this morning she is resting the with eyes open denies any overnight events, reports ongoing swelling is gone down to her left elbow.? She denies any fever chills nausea vomiting at this time.? Reports her pain has been well controlled able to take p.o. medication does not require IV medications this time. Orthopedic consult see HPI below Assessment and Plan Assessment and plan (1) Rash, skin: ?Code(s): R21 - Rash and other nonspecific skin eruption ?Status:?Acute ?Assessment and Plan: Patient with significant erythema b/l LE from proximal thigh to ankle. Minimal swelling. No weeping. No open wounds. Erythema present prior to initiation of antibiotic by urgent care last week. No known causes.
[2023-05-17 05:00] LABS: Anti Nuclear Antibody Titer 1:40 (Negative)
== END 2023-05-15 17:45 | disposition home or self-care (01) ==
LOC: ANHED 16:29 → ANH3MEDSUR 16:55
PROVIDERS: Nurse Practitioner; Nurse Practitioner Family; Admitting Provider Internal Medicine; Emergency Provider Emergency Medicine; Visit Provider Internal Medicine
DX: L03.114 Cellulitis of left upper limb (principal); M70.32 Other bursitis of elbow, left elbow; D17.22 Benign lipomatous neoplasm of skin and subcutaneous tissue of left arm; M62.89 Other specified disorders of muscle; R91.1 Solitary pulmonary nodule; I10 Essential (primary) hypertension; E78.5 Hyperlipidemia, unspecified; K21.9 Gastro-esophageal reflux disease without esophagitis; Z87.891 Personal history of nicotine dependence; Z79.1 Long term (current) use of non-steroidal anti-inflammatories (NSAID); Z79.2 Long term (current) use of antibiotics; Z79.899 Other long term (current) drug therapy
CPT/HCPCS: 36415; 71046; 73080; 73200; 73223; 80053; 80202; 83605; 83880; 85025; 85027; 85610; 85652; 85730; 86038; 86039; 86140; 87040; 96365; 96366; 96374; 96375; 99285; A9270; A9577; G0378; J2270; J3370; J7512